=== PATIENT | male | born 1955 | race African-American/Black ===

== ENCOUNTER 2025-04-22 01:35 | Emergency (ER) | payer MEDICARE, MEDICAID ==
[~2025-04-22] VITALS: Ht 182.9 cm; Wt 90.9 kg
[2025-04-22 01:50] VITALS: TEMP 97.9
[2025-04-22 02:24] LABS: PLATELET COUNT (AUTO) 170 K/uL (150-450); RED BLOOD CELL COUNT(AUTO) 5.35 MIL/uL (4.50-5.90); RED CELL DISTRIBUTION WIDTH 14.4 % (11.5-14.5); WHITE BLOOD COUNT (AUTO) 8.5 K/uL (4.5-11.0)
[2025-04-22 02:37] LABS: CALCIUM, TOTAL 8.5 mg/dL (8.8-10.5); CREATININE 0.99 mg/dL (0.60-1.30); GLOMERULAR FILTR. RATE CALC > 60 mL/min (>60); GLUCOSE,RANDOM 113 mg/dL (70-110); SODIUM SERUM 136 mmol/L (136-145); UREA NITROGEN, BLOOD 24 mg/dL (7-18)
[2025-04-22 02:46] LABS: TROPONIN I-HIGH SENSITIVITY 15 ng/L (<76)
[2025-04-22] MEDS: POTASSIUM CHLORIDE 20 MEQ ER TABLET PO ONE (03:13)
[2025-04-22] MEDS ORDERED: ALBU18HF12 IH (03:34)
[2025-04-22] MEDS ORDERED: PRED-554 PO (03:34)
[2025-04-22] MEDS: ALBUTEROL SULFATE HFA 90 MCG/PUFF 8 GM INHALER IH ONE (03:42)
[2025-04-22 03:58] VITALS: BP 120/70; PULSE 85; RESP 19; O2SAT 95
== END 2025-04-22 04:54 | disposition home or self-care (01) ==
LOC: EMS 01:37
DX: J44.9 Chronic obstructive pulmonary disease, unspecified (principal); R06.02 Shortness of breath; I10 Essential (primary) hypertension
CPT/HCPCS: 99285; 71045; 80048; 83880; 84484; 85025; 36415; 94640; 93005; J7512; J3535

== ENCOUNTER 2025-05-04 05:46 | Inpatient (IN) | payer MEDICARE, MEDICAID ==
[~2025-05-04] VITALS: Ht 188 cm; Wt 85.0 kg
[~2025-05-04 05:46] MED LIST: ALBU18HF12 IH; PRED-554 PO
[2025-05-04] MEDS: LORazepam 2 MG/ML VIAL IVP ONE (06:10)
[2025-05-04 06:15] VITALS: PULSE 137; RESP 30; O2SAT 100
[2025-05-04] MEDS ORDERED: LEVALBUTEROL 1.25 MG/0.5 ML NEB SOLUTION NEB ONE (06:22)
[2025-05-04 06:29] VITALS: PULSE 134; RESP 30; O2SAT 100
[2025-05-04] MEDS: LEVALBUTEROL 1.25 MG/0.5 ML NEB SOLUTION NEB ONE (06:29)
[2025-05-04 06:30] VITALS: PULSE 133; RESP 29; O2SAT 100
[2025-05-04] MEDS: SODIUM CHLORIDE 0.9% 1,000 ML IV ONE (06:37)
[2025-05-04 06:45] LABS: GLUCOMETER DEV NAME(LOC) ER.7; GLUCOSE,POINT OF CARE 133 MG/DL (70-110)
[2025-05-04 06:52] LABS: COVID AG,FIA SOURCE NASAL SWAB
[2025-05-04 06:55] LABS: PLATELET COUNT (AUTO) 216 K/uL (150-450); RED BLOOD CELL COUNT(AUTO) 5.01 MIL/uL (4.50-5.90); RED CELL DISTRIBUTION WIDTH 14.0 % (11.5-14.5); WHITE BLOOD COUNT (AUTO) 7.5 K/uL (4.5-11.0)
[2025-05-04 07:02] LABS: CALCIUM, TOTAL 8.6 mg/dL (8.8-10.5); CREATININE 1.03 mg/dL (0.60-1.30); GLOMERULAR FILTR. RATE CALC > 60 mL/min (>60); GLUCOSE,RANDOM 134 mg/dL (70-110); SODIUM SERUM 140 mmol/L (136-145); UREA NITROGEN, BLOOD 13 mg/dL (7-18)
[2025-05-04 07:12] LABS: TROPONIN I-HIGH SENSITIVITY 10 ng/L (<76)
[2025-05-04 07:14] LABS: CREATINE KINASE, TOTAL ONLY 267 U/L (39-308)
[2025-05-04 07:40] LABS: SARS-COV2 (COVID) ANTIGEN,FIA Negative (Negative)
[2025-05-04] MEDS: AZITHROMYCIN 500 MG/NS 250 ML IV ONE (07:45)
[2025-05-04 07:58] LABS: INFLUENZA TYPE A NEGATIVE FOR TYPE A (NEGATIVE); INFLUENZA TYPE B NEGATIVE FOR TYPE B (NEGATIVE)
[2025-05-04] MEDS ORDERED: 0.9% SODIUM CHLORIDE 10 ML SYRINGE IVP PRN (08:30)
[2025-05-04] MEDS ORDERED: IPRATROPIUM BROMIDE 0.5 MG/2.5 ML NEB SOLUTION NEB PRN (08:30)
[2025-05-04] MEDS ORDERED: ONDANSETRON HCL 4 MG/2 ML VIAL IVP PRN (08:30)
[2025-05-04] MEDS ORDERED: ALBUTEROL SULFATE 2.5 MG/0.5 ML NEB SOLUTION NEB PRN (08:30)
[2025-05-04 09:18] LABS: CALCIUM, TOTAL 8.3 mg/dL (8.8-10.5); CREATININE 1.07 mg/dL (0.60-1.30); GLOMERULAR FILTR. RATE CALC > 60 mL/min (>60); GLUCOSE,RANDOM 206 mg/dL (70-110); SODIUM SERUM 139 mmol/L (136-145); UREA NITROGEN, BLOOD 13 mg/dL (7-18)
[2025-05-04] MEDS: CefTRIAXone 1 GM/DEXTROSE 50 ML IV ONE (09:19)
[2025-05-04 09:22] LABS: ASPARTATE AMINOTRANSFERASE 24 U/L (15-37); LACTATE DEHYDROGENASE 209 U/L (85-227); TOTAL PROTEIN, SERUM 6.4 g/dL (6.4-8.2)
[2025-05-04 09:32] LABS: LACTIC ACID 2.1 mmol/L (0.4-2.0)
[2025-05-04] MEDS: SODIUM CHLORIDE 0.9% 2,750 ML IV ONE (09:58)
[2025-05-04] MEDS ORDERED: INSULIN LISPRO 100 UNITS/ML SQ PRN (11:00)
[2025-05-04] MEDS ORDERED: DEXTROSE 50%-WATER 25 GM/50 ML SYRINGE IVP PRN (11:00)
[2025-05-04 11:25] LABS: APPEARANCE,URINE CLEAR (CLEAR); GLUCOSE, URINE (UA) 150-200 mg/dL (NEGATIVE); LEUKOCYTE ESTERASE ,URINE NEGATIVE (NEGATIVE); NITRATE,URINE NEGATIVE (NEGATIVE); OCCULT BLOOD,URINE NEGATIVE (NEGATIVE); SPECIFIC GRAVITIY, URINE 1.018 (1.003-1.030)
[2025-05-04 12:40] VITALS: BP 126/78; PULSE 105; RESP 18; TEMP 98; O2SAT 100
[2025-05-04] MEDS ORDERED: INFLUENZA VIRUS VACCINE TVS (6MO+) 2025-26/PF 45 MCG/0.5 ML SYRINGE IM. ONE (15:30)
[2025-05-04] MEDS ORDERED: HEPARIN SODIUM,PORCINE 5,000 UNITS/ML VIAL IVP PRN ×2 (15:45)
[2025-05-04] MEDS ORDERED: HEPARIN SODIUM 25000 UNITS/D5W 250 ML IV PRN (15:45)
[2025-05-04 15:50] VITALS: BP 134/89; PULSE 94; RESP 19; TEMP 97.9; O2SAT 98
[2025-05-04] MEDS ORDERED: HEPARIN SODIUM,PORCINE 5,000 UNITS/ML VIAL SQ SCH (16:00)
[2025-05-04] MEDS: HEPARIN SODIUM,PORCINE 5,000 UNITS/ML VIAL IVP ONE (16:44)
[2025-05-04 17:45] LABS: PLATELET COUNT (AUTO) 199 K/uL (150-450); RED BLOOD CELL COUNT(AUTO) 4.43 MIL/uL (4.50-5.90); RED CELL DISTRIBUTION WIDTH 13.9 % (11.5-14.5); WHITE BLOOD COUNT (AUTO) 6.8 K/uL (4.5-11.0)
[2025-05-04 20:07] VITALS: BP 132/94; PULSE 96; RESP 19; TEMP 98.4; O2SAT 95
[2025-05-04 20:16] LABS: GLUCOMETER DEV NAME(LOC) 5N.2C; GLUCOSE,POINT OF CARE 118 MG/DL (70-110)
[2025-05-04] MEDS: ACETAMINOPHEN 325 MG TABLET PO PRN (20:47)
[2025-05-04] MEDS: CHLORHEXIDINE GLUCONATE 2% TOWELETTE [2'S/6'S] TP SCH (21:08)
[2025-05-05 00:27] VITALS: BP 123/86; PULSE 96; RESP 17; TEMP 98.2; O2SAT 94
[2025-05-05 01:11] LABS: GLUCOMETER DEV NAME(LOC) 5N.1D; GLUCOSE,POINT OF CARE 122 MG/DL (70-110)
[2025-05-05 05:09] VITALS: BP 124/86; PULSE 83; RESP 17; TEMP 97.9; O2SAT 96
[2025-05-05 06:01] LABS: PLATELET COUNT (AUTO) 196 K/uL (150-450); RED BLOOD CELL COUNT(AUTO) 4.17 MIL/uL (4.50-5.90); RED CELL DISTRIBUTION WIDTH 13.8 % (11.5-14.5); WHITE BLOOD COUNT (AUTO) 12.0 K/uL (4.5-11.0)
[2025-05-05 07:45] VITALS: BP 124/89; PULSE 92; RESP 18; TEMP 98.4; O2SAT 98
[2025-05-05] MEDS ORDERED: SODIUM CHLORIDE 0.9% 500 ML IV ONE (09:19)
[2025-05-05] MEDS: CefTRIAXone 1 GM/DEXTROSE 50 ML IV SCH (09:21)
[2025-05-05 10:16] LABS: GLUCOMETER DEV NAME(LOC) 5N.1D; GLUCOSE,POINT OF CARE 118 MG/DL (70-110)
[2025-05-05] MEDS: DOXYCYCLINE HYCLATE 100 MG in DEXTROSE 5%-WATER 100 ML IV SCH (11:26)
[2025-05-05 11:30] VITALS: BP 132/79; PULSE 93; RESP 18; TEMP 98.2; O2SAT 97
[2025-05-05 15:00] VITALS: BP 131/69; PULSE 91; RESP 20; TEMP 97.9; O2SAT 98
[2025-05-05] MEDS: BENZONATATE 100 MG CAPSULE PO SCH (16:15)
[2025-05-05 19:39] VITALS: BP 137/89; PULSE 83; RESP 20; TEMP 98.1; O2SAT 95
[2025-05-05] MEDS: GuaiFENesin SR 600 MG ER TABLET PO SCH (20:31)
[2025-05-05] MEDS: BUDESONIDE 0.5 MG/2 ML NEB SOLUTION NEB SCH (21:00)
[2025-05-05] MEDS ORDERED: SODIUM CHLORIDE 0.9% 250 ML IV ONE (21:39)
[2025-05-06] VITALS (7 sets, daily range): BP systolic 123–148; BP diastolic 85–90; PULSE 81–88; RESP 18–20; TEMP 98.1–98.6; O2SAT 96–100
[2025-05-06 00:36] LABS: GLUCOMETER DEV NAME(LOC) 4E.2; GLUCOSE,POINT OF CARE 114 MG/DL (70-110)
[2025-05-06 02:51] LABS: GLUCOMETER DEV NAME(LOC) 5N.2C; GLUCOSE,POINT OF CARE 136 MG/DL (70-110)
[2025-05-06 07:15] LABS: GLUCOMETER DEV NAME(LOC) 4E.2; GLUCOSE,POINT OF CARE 105 MG/DL (70-110)
[2025-05-06 07:19] LABS: PLATELET COUNT (AUTO) 199 K/uL (150-450); RED BLOOD CELL COUNT(AUTO) 4.19 MIL/uL (4.50-5.90); RED CELL DISTRIBUTION WIDTH 13.5 % (11.5-14.5); WHITE BLOOD COUNT (AUTO) 10.9 K/uL (4.5-11.0)
[2025-05-06 07:26] LABS: CALCIUM, TOTAL 8.3 mg/dL (8.8-10.5); CREATININE 0.83 mg/dL (0.60-1.30); GLOMERULAR FILTR. RATE CALC > 60 mL/min (>60); GLUCOSE,RANDOM 110 mg/dL (70-110); SODIUM SERUM 139 mmol/L (136-145); UREA NITROGEN, BLOOD 20 mg/dL (7-18)
[2025-05-06 11:21] LABS: TROPONIN I-HIGH SENSITIVITY 9 ng/L (<76)
[2025-05-06] MEDS ORDERED: CEPH-558 PO (13:30)
[2025-05-06] MEDS ORDERED: ALPR-709 PO (13:30)
[2025-05-06] MEDS ORDERED: DOXY-354 PO (13:30)
[2025-05-06] MEDS ORDERED: ALBU18HF12 IH (13:30)
[2025-05-06] MEDS ORDERED: PRED-554 PO (13:38)
[2025-05-06] MEDS: IPRATROPIUM BROMIDE 0.5 MG/2.5 ML NEB SOLUTION NEB PRN (15:27)
[2025-05-06] MEDS: ALBUTEROL SULFATE 2.5 MG/0.5 ML NEB SOLUTION NEB PRN (15:27)
[2025-05-06 16:48] LABS: TROPONIN I-HIGH SENSITIVITY 9 ng/L (<76)
[2025-05-06 16:48] LABS: ABG BASE EXCESS -0.2 mmol/L (-2.0-3.0); ABG CARBOXYHEMOGLOBIN 0.3 % (0.5-1.5); ABG HCO3 25.1 mmol/L (21.0-28.0); ABG METHEMOGLOBIN 0.3 % (0.0-1.5); ABG OXYGEN CONTENT 19.1 mL/dL (15.0-23.0); ABG OXYGEN SATURATION 99.1 % (94.0-98.0); ABG OXYHEMOGLOBIN 98.5 % (94.0-98.0); ABG PCO2 30 mmHg (32.0-48.0); ABG PH 7.500 (7.350-7.450); ABG TOTAL HEMOGLOBIN 13.6 G/dL (13.5-17.5); FRACTIONATED INSPIRED OXYGEN 21.0 % (21-100.0); PO2, ARTERIAL BG 152.1 mmHg (83.0-108.0); SOURCE, BLOOD GAS ARTERIAL; TEMPERATURE, FAHRENHEIT, BG 97.9 FAHREN (96.0-98.6)
[2025-05-06 16:50] LABS: ALLEN TEST, BLOOD GAS Positive; O2 DEVICE,BLOOD GAS ROOM AIR (ROOM AIR); PATIENT RATE, BG 16.0 min.; SITE, BLOOD GAS RT RADIAL
== END 2025-05-06 18:25 | disposition home or self-care (01) | DRG 190 ==
LOC: EMS 06:10 → EDH 08:29 → 5N 12:38 → 4E 05-05 14:20
PROVIDERS: ADMIT Internal Medicine; ATTEND Internal Medicine
PROC: 5A09357 Assistance with Respiratory Ventilation, Less than 24 Consecutive Hours, Continuous Positive Airway Pressure (ICD-10-PCS; principal; 2025-05-04)
DX: J44.1 Chronic obstructive pulmonary disease with (acute) exacerbation (principal); J18.9 Pneumonia, unspecified organism; J96.90 Respiratory failure, unspecified, unspecified whether with hypoxia or hypercapnia; J44.0 Chronic obstructive pulmonary disease with (acute) lower respiratory infection; Z20.822 Contact with and (suspected) exposure to COVID-19; F41.9 Anxiety disorder, unspecified; I10 Essential (primary) hypertension; Z86.711 Personal history of pulmonary embolism; Z91.199 Patient's noncompliance with other medical treatment and regimen due to unspecified reason
CPT/HCPCS: 71045; 71275; 80048; 80053; 81001; 82550; 82805; 82962; 83605; 83615; 83735; 83880; 84145; 84484; 85025; 85379; 85610; 85730; 87040; 87804; 93005; 93970; 94640; 94660; 99285; G0378; J0456; J0696; J1171; J1644; J2060; J2919; J3490; J7030; J7040; J7050; J7060; 36415-L1; 36415-TC; J7613; Z7610